=== PATIENT | male | born 1975 | race Caucasian/White ===

== ENCOUNTER 2019-04-23 09:42 | Emergency (ER) | payer OTHER ==
[~2019-04-23] VITALS: Ht 167.6 cm; Wt 93.6 kg
[2019-04-23 09:46] VITALS: BP 150/116
--- NOTE | 2019-04-23 09:46 | NUR ---
PATIENT AMBULATED TO BED 4 WITH STEADY GAIT.
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
--- NOTE | 2019-04-23 09:59 | NUR ---
CALLED CT SCAN FOR CODE BRAIN PER DR. MAYO
[2019-04-23] MEDS ORDERED: NACL 0.9% 500 ML IV ONE (10:00)
[2019-04-23] MEDS ORDERED: cloNIDine 0.1 MG TAB PO ONE (10:00)
--- NOTE | 2019-04-23 10:04 | NUR ---
SENT PT TO CT SCAN ASSISTED BY IMAGING TECHS VIA [employer]. PT'S VSS.
--- NOTE | 2019-04-23 10:30 | NUR ---
PT'S BP 127/87MMHG. DR. PUTNAM NOTIFIED. D/C CLONIDINE PO PER DR'S ORDER.
[2019-04-23 11:14] LABS: BASOPHILS % (AUTO) 0.2 % (0.0-2.0); EOSINOPHILS # (AUTO) 0.2 K/uL (0-0.4); HEMATOCRIT 46.9 % (36-52); HEMOGLOBIN 15.4 g/dL (12.0-18.0); LYMPHOCYTES # (AUTO) 2.6 K/uL (2.0-11.5); LYMPHOCYTES % (AUTO) 37.8 % (20.5-51.1); MEAN CORPUSCULAR HEMOGLOBIN 28 pg (27-31); MEAN CORPUSCULAR HGB CONC 33 g/dL (33-37); MEAN CORPUSCULAR VOLUME 85.5 fL (80-94); MONOCYTES # (AUTO) 0.5 K/uL (0.8-1.0); MONOCYTES % (AUTO) 6.6 % (1.7-9.3); NEUTROPHILS # (AUTO) 3.6 K/uL (1.8-7.7); NEUTROPHILS % (AUTO) 52.4 % (42.2-75.2); PLATELET COUNT (AUTO) 211 K/uL (140-450); RED BLOOD CELL COUNT(AUTO) 5.48 MIL/uL (4.20-6.10); RED CELL DISTRIBUTION WIDTH 14.5 % (11.6-13.7); WHITE BLOOD COUNT (AUTO) 6.9 K/uL (4.8-10.8)
[2019-04-23 11:22] LABS: APPEARANCE,URINE CLEAR (CLEAR); BILIRUBIN,URINE NEGATIVE (NEGATIVE); BLOOD, URINE NEGATIVE (NEGATIVE); COLOR,URINE YELLOW (YELLOW); LEUKOCYTE ESTERASE ,URINE NEGATIVE (NEGATIVE); NITRITE, URINE NEGATIVE (NEGATIVE); PH,URINE 6.5 (5.0-9.0); UGLUCOSE 3+ (NEGATIVE)
[2019-04-23 11:27] LABS: BARBITURATE, URINE NEG. ng/ml (NEG <=200); BENZODIAZEPINE, URINE NEG. ng/mL (NEG <=200); CANNABINOID, URINE NEG. ng/mL (NEG <=50); COCAINE, URINE NEG. ng/mL (NEG <=300); OPIATE, URINE NEG. ng/mL (NEG <=2000); PHENCYCLIDINE SCREEN,URINE NEG. ng/mL (NEG <=25)
[2019-04-23 11:28] LABS: ALBUMIN 3.7 g/dL (3.4-5.0); ANION GAP 11.6 (8-16); CARBON DIOXIDE 28.5 mmol/L (21-32); CREATININE 0.7 mg/dL (0.7-1.3); POTASSIUM 4.1 mmol/L (3.5-5.1); TOTAL BILIRUBIN 0.4 mg/dL (0.0-1.0)
[2019-04-23 11:34] LABS: RBC,URINE 0-5 /HPF (0-5); WBC,URINE 0-5 /HPF (0-5)
[2019-04-23 11:48] LABS: PROTHROMBIN TIME 9.9 secs (10.8-13.4)
[2019-04-23] MEDS ORDERED: predniSONE 20 MG TAB PO ONE (11:55)
[2019-04-23] MEDS ORDERED: LORazepam 0.5 MG TAB PO ONE (11:55)
[2019-04-23] MEDS ORDERED: KETOROLAC 30 MG/ML VIAL IM ONE (11:55)
[2019-04-23 12:51] VITALS: BP 131/89
--- NOTE | 2019-04-23 12:51 | NUR ---
Patient discharged with v/s stable. Written and verbal after care instructions given and explained. Patient alert, oriented and verbalized understanding of instructions. Ambulatory with steady gait. All questions addressed prior to discharge. ID band removed. Patient advised to follow up with PMD. Rx of Naprosyn, Ativan, and Prednisone given. Patient educated on indication of medication including possible reaction and side effects. Opportunity to ask questions provided and answered.
== END 2019-04-23 12:51 | disposition home or self-care (01) ==
LOC: MED 09:42
DX: G51.0 Bell's palsy (principal); E11.9 Type 2 diabetes mellitus without complications; I10 Essential (primary) hypertension; F40.11 Social phobia, generalized
CPT/HCPCS: 36415; 70450; 71045; 80053; 80305; 81001; 84484; 85025; 85610; 85730; 93005; 96372; 99291; J1885; J7030; J7512; Q0092; 96361

== ENCOUNTER 2019-05-06 10:58 | Emergency (ER) | payer OTHER ==
[~2019-05-06] VITALS: Ht 171.4 cm; Wt 93.9 kg
[2019-05-06 11:13] VITALS: BP 111/87
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
[2019-05-06] MEDS ORDERED: HYDROcodone/APAP 5/325 MG 1 TAB TAB PO ONE (12:25)
[2019-05-06 13:10] VITALS: BP 106/76
--- NOTE | 2019-05-06 13:10 | NUR ---
Patient discharged with v/s stable. Written and verbal after care instructions given and explained. Patient alert, oriented and verbalized understanding of instructions. Ambulatory with steady gait. All questions addressed prior to discharge. ID band removed. Patient advised to follow up with PMD. Rx of CODEINE PHOSPHATE/ PROMETHAZINE HYDROCHLORIDE & IBUPROFEN given. Patient educated on indication of medication including possible reaction and side effects. Opportunity to ask questions provided and answered.
== END 2019-05-06 13:10 | disposition home or self-care (01) ==
LOC: MED 10:58
DX: G51.0 Bell's palsy (principal); E11.9 Type 2 diabetes mellitus without complications; E78.5 Hyperlipidemia, unspecified
CPT/HCPCS: 99283